=== PATIENT | female | born 1935 | race Caucasian/White ===

== ENCOUNTER 2023-07-26 16:35 | Inpatient (IN) | payer OTHER, MEDICAID ==
[~2023-07-26] VITALS: Ht 160 cm; Wt 51.7 kg
[2023-07-26] MEDS ORDERED: methylPREDNISolone SOD SUCC 125 MG/2ML VIAL IV ONE (17:00)
[2023-07-26] MEDS ORDERED: Magnesium 1GM/D5W 100ML PREMIX 200 ML IV ONE (17:00)
[2023-07-26] MEDS ORDERED: IPRATROPIUM NEB FS 0.5 MG/2.5 ML AMPUL.NEB NEB ONE (17:00)
[2023-07-26] MEDS ORDERED: ALBUTEROL FS 2.5 MG/3 ML VIAL.NEB CONTNEB ONE (17:00)
[2023-07-26] MEDS ORDERED: Magnesium 1GM/D5W 100ML PREMIX 100 ML IV ONE ×2 (17:04→18:10)
[2023-07-26] MEDS ORDERED: methylPREDNISolone SOD SUCC 125 MG/2ML VIAL ONE (17:04)
[2023-07-26] MEDS ORDERED: IPRATROPIUM NEB FS 0.5 MG/2.5 ML AMPUL.NEB ONE (17:06)
[2023-07-26] MEDS ORDERED: ALBUTEROL FS 2.5 MG/3 ML VIAL.NEB ONE (17:06)
[2023-07-26 17:18] VITALS: O2SAT 91
[2023-07-26 17:24] LABS: BASOPHILS % (AUTO) 0.1 % (0.0-2.0); EOSINOPHILS % (AUTO) 0.1 % (0.0-6.0); HEMATOCRIT 37 % (33-45); HEMOGLOBIN 12.1 g/dL (11.5-14.8); LYMPHOCYTES # (AUTO) 1.4 K/uL (0.8-4.8); LYMPHOCYTES % (AUTO) 6.3 % (20.0-44.0); MEAN CORPUSCULAR HEMOGLOBIN 28 PG (26.0-33.0); MEAN CORPUSCULAR HGB CONC 32 g/dl (31.0-36.0); MEAN CORPUSCULAR VOLUME 87 fL (82-100); MONOCYTES # (AUTO) 0.5 K/uL (0.1-1.30); MONOCYTES % (AUTO) 2.4 % (2.0-12.0); NEUTROPHILS # (AUTO) 20.5 K/uL (1.8-8.9); NEUTROPHILS % (AUTO) 91.1 % (43.0-81.0); PLATELET COUNT (AUTO) 120 K/uL (150-450); RED BLOOD CELL COUNT(AUTO) 4.31 MIL/uL (4.0-5.2); RED CELL DISTRIBUTION WIDTH 15.5 % (11.5-15.0); WHITE BLOOD COUNT (AUTO) 22.4 K/uL (4.3-11.0)
[2023-07-26 17:28] LABS: CALCIUM, SERUM 8.6 mg/dL (8.5-10.1); CARBON DIOXIDE 28 mmol/L (21-32); CHLORIDE 102 mmol/L (98-107); CREATININE 0.6 mg/dL (0.6-1.3); GLUCOSE 135 mg/dL (74-106); POTASSIUM 4.2 mmol/L (3.5-5.1); SODIUM SERUM 139 mmol/L (136-145); UREA NITROGEN, BLOOD 25 mg/dL (7-18)
[2023-07-26] MEDS ORDERED: PIPERACI/TAZO 3.375GM/D5W 50ML PB IV ONE ×2 (17:30→23:53)
[2023-07-26] MEDS ORDERED: ACETAMINOPHEN 650 MG/SUPP.RECT RC ONE ×2 (17:30)
[2023-07-26] MEDS ORDERED: PIPERACILLIN /TAZOBACTAM 3.375 G in IV D5W 50 ML IV ONE (17:30)
[2023-07-26] MEDS ORDERED: VANCOMYCIN 1 GM in IV D5W 250 ML IV ONE (17:30)
[2023-07-26] MEDS ORDERED: AZITHROMYCIN 500 MG in IV D5W 250 ML IV ONE (17:30)
[2023-07-26 17:38] VITALS: O2SAT 100
[2023-07-26] MEDS ORDERED: APIX5TAB PO (17:47)
[2023-07-26] MEDS ORDERED: POTA20TA83 PO (17:47)
[2023-07-26] MEDS ORDERED: ALBU6.7H9 IH (17:47)
[2023-07-26] MEDS ORDERED: NA P133E RC (17:47)
[2023-07-26] MEDS ORDERED: BISA10SU11 RC (17:47)
[2023-07-26] MEDS ORDERED: TRAZ-182 PO (17:47)
[2023-07-26] MEDS ORDERED: ACET-868 PO ×2 (17:47)
[2023-07-26] MEDS ORDERED: ASCO-352 PO (17:47)
[2023-07-26] MEDS ORDERED: FLUT1DIS5 IH (17:47)
[2023-07-26] MEDS ORDERED: CHOL200059 PO (17:47)
[2023-07-26] MEDS ORDERED: PRED5TAB PO (17:47)
[2023-07-26] MEDS ORDERED: SERT25TA PO (17:47)
[2023-07-26] MEDS ORDERED: PANT40TA49 PO (17:47)
[2023-07-26] MEDS ORDERED: SIMV-46 PO (17:47)
[2023-07-26] MEDS ORDERED: HYDR453. TP (17:47)
[2023-07-26] MEDS ORDERED: POLY15DR40 EACHEYE (17:47)
[2023-07-26] MEDS ORDERED: LEVA0.6320 IH (17:47)
[2023-07-26] MEDS ORDERED: MENT118G TP (17:47)
[2023-07-26] MEDS ORDERED: PRED10TA PO (17:47)
[2023-07-26] MEDS ORDERED: PRED20TA PO (17:47)
[2023-07-26] MEDS ORDERED: BUDE0.253 IH (17:47)
[2023-07-26] MEDS ORDERED: PETR113O TP (17:47)
[2023-07-26] MEDS ORDERED: ACLIDINIUM BROMIDE IH (17:47)
[2023-07-26] MEDS ORDERED: MELA5TAB PO (17:47)
[2023-07-26] MEDS ORDERED: FURO-145 PO (17:47)
[2023-07-26] MEDS ORDERED: ALEN70TA3 PO (17:47)
[2023-07-26] MEDS ORDERED: AMLO5TAB4 PO (17:47)
[2023-07-26] MEDS ORDERED: IPRA0.2S9 IH (17:47)
[2023-07-26] MEDS ORDERED: CALC-903 PO (17:47)
[2023-07-26] MEDS ORDERED: DOCU100C36 PO (17:47)
[2023-07-26] MEDS ORDERED: ZINC220C6 PO (17:47)
[2023-07-26] MEDS ORDERED: LEVO50TA PO (17:47)
[2023-07-26] MEDS ORDERED: MULT-213 PO (17:47)
[2023-07-26] MEDS ORDERED: ZINC57OI4 TP (17:47)
[2023-07-26] MEDS ORDERED: MAGN400O6 PO (17:47)
[2023-07-26 17:51] LABS: ALANINE AMINOTRANSFERASE 41 U/L (12-78); ALBUMIN 2.6 g/dL (3.4-5.0); ALKALINE PHOSPHATASE 54 U/L (46-116); ASPARTATE AMINOTRANSFERASE 22 U/L (15-37); BILIRUBIN,DIRECT 0.2 mg/dL (0.0-0.2); BILIRUBIN,TOTAL 0.6 mg/dL (0.2-1.0); TOTAL PROTEIN, SERUM 5.9 g/dL (6.4-8.2)
[2023-07-26] MEDS ORDERED: IV NS 0.9% 500 ML BAG IV ONE (18:00)
[2023-07-26] MEDS ORDERED: ACETAMINOPHEN 325 MG TABLET PO PRN ×3 (19:30)
[2023-07-26] MEDS ORDERED: BISACODYL SUPP (10 MG) 10 MG/SUPP.RECT SUPP.RECT RC PRN (19:30)
[2023-07-26] MEDS ORDERED: HYDROCORTISONE 1% CREAM 28.35 GM TUBE TP PRN (19:30)
[2023-07-26] MEDS ORDERED: MENTHOL TP PRN (19:30)
[2023-07-26] MEDS ORDERED: ONDANSETRON HCL/PF 4 MG/2 ML VIAL IVP PRN (19:30)
[2023-07-26] MEDS ORDERED: IPRATROPIUM NEB FS 0.5 MG/2.5 ML AMPUL.NEB IH PRN (19:30)
[2023-07-26] MEDS ORDERED: Z GUARD REMEDY 4 OZ OINT TP PRN (19:30)
[2023-07-26] MEDS ORDERED: MAGNESIUM HYDROXIDE 30 ML UDC PO PRN (19:30)
[2023-07-26] MEDS ORDERED: ZOLPIDEM TARTRATE 5 MG TABLET PO PRN (19:30)
[2023-07-26] MEDS ORDERED: MAG HYDROX/AL HYDROX/SIMETH 30 ML UDC PO PRN (19:30)
[2023-07-26 19:44] LABS: BAND % (MANUAL) 4 % (0.0-5.0); LYMPHOCYTES % (MANUAL) 10 % (16-48); MONOCYTES % (MANUAL) 5 % (0-11.0); NEUTROPHILS % (MANUAL) 81 (42-76); PLATELET ESTIMATE DECREASED
[2023-07-26] MEDS ORDERED: POLYVINYL ALCOHOL 15 ML BOTTLE EACHEYE PRN (20:00)
[2023-07-26] MEDS: SIMVASTATIN 20 MG TABLET PO SCH (22:53)
[2023-07-26] MEDS: TRAZODONE 50 MG TABLET PO SCH (22:53)
[2023-07-26] MEDS: methylPREDNISolone SOD SUCC 40 MG/ML VIAL IV SCH (23:42)
[2023-07-27] VITALS (16 sets, daily range): BP systolic 107–119; BP diastolic 62–73; TEMP 97.2–98.2; O2SAT 91–100
[2023-07-27] MEDS ORDERED: LEVALBUTEROL HCL IH SCH
[2023-07-27] MEDS: PIPERACILLIN /TAZOBACTAM 3.375 G in IV D5W 50 ML IV SCH ×3 (00:04→12:59)
[2023-07-27] MEDS ORDERED: ALBUTEROL FS 2.5 MG/3 ML VIAL.NEB NEB SCH (01:30)
[2023-07-27] MEDS: ALBUTEROL FS 2.5 MG/3 ML VIAL.NEB NEB SCH ×4 (02:41→19:32)
[2023-07-27] MEDS: IPRATROPIUM NEB FS 0.5 MG/2.5 ML AMPUL.NEB NEB SCH ×4 (02:41→19:32)
[2023-07-27] MEDS ORDERED: PIPERACI/TAZO 3.375GM/D5W 50ML PB IV ONE (05:13)
[2023-07-27] MEDS: methylPREDNISolone SOD SUCC 40 MG/ML VIAL IV SCH ×3 (05:17→21:21)
[2023-07-27 06:32] LABS: CARBON DIOXIDE 27 mmol/L (21-32); CHLORIDE 98 mmol/L (98-107); CREATININE 0.8 mg/dL (0.6-1.3); GLUCOSE 141 mg/dL (74-106); MAGNESIUM 3.1 mg/dL (1.8-2.4); PHOSPHORUS 5.4 mg/dL (2.5-4.9); POTASSIUM 4.1 mmol/L (3.5-5.1); SODIUM SERUM 134 mmol/L (136-145); UREA NITROGEN, BLOOD 27 mg/dL (7-18)
[2023-07-27] MEDS: BUDESONIDE RESPULE INH 0.25 MG/2 ML AMPUL.NEB IH SCH ×2 (07:57→16:13)
[2023-07-27 07:59] LABS: BASOPHILS % (AUTO) 0.2 % (0.0-2.0); HEMATOCRIT 36 % (33-45); HEMOGLOBIN 11.9 g/dL (11.5-14.8); LYMPHOCYTES # (AUTO) 1.1 K/uL (0.8-4.8); LYMPHOCYTES % (AUTO) 8.1 % (20.0-44.0); MEAN CORPUSCULAR HEMOGLOBIN 29 PG (26.0-33.0); MEAN CORPUSCULAR HGB CONC 33 g/dl (31.0-36.0); MEAN CORPUSCULAR VOLUME 87 fL (82-100); MONOCYTES # (AUTO) 0.2 K/uL (0.1-1.30); MONOCYTES % (AUTO) 1.5 % (2.0-12.0); NEUTROPHILS # (AUTO) 12.3 K/uL (1.8-8.9); NEUTROPHILS % (AUTO) 90.2 % (43.0-81.0); PLATELET COUNT (AUTO) 97 K/uL (150-450); RED BLOOD CELL COUNT(AUTO) 4.16 MIL/uL (4.0-5.2); RED CELL DISTRIBUTION WIDTH 15.1 % (11.5-15.0); WHITE BLOOD COUNT (AUTO) 13.6 K/uL (4.3-11.0)
[2023-07-27] MEDS ORDERED: PANTOPRAZOLE 40 MG VIAL IV SCH (09:00)
[2023-07-27] MEDS ORDERED: ACLIDINIUM BROMIDE IH SCH (09:00)
[2023-07-27 09:23] LABS: ABG BASE EXCESS 5.9 mmol/L; ABG OXYGEN SATURATION 89.4 % (92.0-98.5); ABG PH 7.496 (7.350-7.450); ABG PO2 54.3 mmHg (75.0-100.0); ABG TOTAL HEMOGLOBIN 12.8 G/dL (12.0-16.0); COHb 1.1 % (0.5-1.5); MetHb 0.2 % (0.0-1.5); O2Hb 88.2 % (94.0-97.0); SITE, ABG Right Radial; VENT MODE, BG 2 LPM NC
[2023-07-27] MEDS: ASCORBIC ACID 500 MG TABLET PO SCH (09:27)
[2023-07-27] MEDS: AMLODIPINE BESYLATE 5 MG TABLET PO SCH (09:27)
[2023-07-27] MEDS: LEVOTHYROXINE SODIUM 50 MCG TABLET PO SCH (09:28)
[2023-07-27] MEDS: DOCUSATE SODIUM 100 MG CAPSULE PO SCH ×2 (09:28→16:48)
[2023-07-27] MEDS: CHOLECALCIFEROL 1,000 UNIT TABLET (VIT D3) PO SCH (09:28)
[2023-07-27] MEDS: CALCIUM CARBONATE 500 MG TAB.CHEW PO SCH ×2 (09:28→16:48)
[2023-07-27] MEDS: MULTIVIT W/MINERALS 1 TAB TABLET PO SCH (09:28)
[2023-07-27] MEDS: APIXABAN 5 MG TABLET PO SCH ×2 (09:29→16:50)
[2023-07-27] MEDS: VANCOMYCIN 500 MG in IV D5W 100 ML IV SCH ×2 (09:30→21:21)
[2023-07-27] MEDS: FLUTICASONE/VILANTEROL 1 EACH BLST.W.DEV IH SCH (10:26)
[2023-07-27 14:33] LABS: ANISOCYTOSIS 1+; PLATELET ESTIMATE DECREASED
[2023-07-27 14:35] LABS: OVALOCYTES 1+
[2023-07-27] MEDS: CEFEPIME 2 GM in IV D5W 100 ML IV SCH (20:03)
[2023-07-27] MEDS: TRAZODONE 50 MG TABLET PO SCH (21:22)
[2023-07-27] MEDS: SIMVASTATIN 20 MG TABLET PO SCH (21:22)
[2023-07-27] MEDS ORDERED: MELATONIN 3 MG TABLET PO SCH (22:00)
[2023-07-28] VITALS (15 sets, daily range): BP systolic 100–117; BP diastolic 60–74; TEMP 97–98.2; O2SAT 91–98
[2023-07-28] MEDS: ALBUTEROL FS 2.5 MG/3 ML VIAL.NEB NEB SCH ×4 (01:49→20:08)
[2023-07-28] MEDS: IPRATROPIUM NEB FS 0.5 MG/2.5 ML AMPUL.NEB NEB SCH ×4 (01:49→20:08)
[2023-07-28] MEDS: methylPREDNISolone SOD SUCC 40 MG/ML VIAL IV SCH ×3 (04:24→21:05)
[2023-07-28] MEDS: BUDESONIDE RESPULE INH 0.25 MG/2 ML AMPUL.NEB IH SCH ×2 (07:50→15:45)
[2023-07-28] MEDS: ASCORBIC ACID 500 MG TABLET PO SCH (08:49)
[2023-07-28] MEDS: CEFEPIME 2 GM in IV D5W 100 ML IV SCH ×2 (08:49→20:15)
[2023-07-28] MEDS: DOCUSATE SODIUM 100 MG CAPSULE PO SCH ×2 (08:49→16:32)
[2023-07-28] MEDS: CHOLECALCIFEROL 1,000 UNIT TABLET (VIT D3) PO SCH (08:49)
[2023-07-28] MEDS: FLUTICASONE/VILANTEROL 1 EACH BLST.W.DEV IH SCH (08:49)
[2023-07-28] MEDS: CALCIUM CARBONATE 500 MG TAB.CHEW PO SCH ×2 (08:49→16:32)
[2023-07-28] MEDS: MULTIVIT W/MINERALS 1 TAB TABLET PO SCH (08:49)
[2023-07-28] MEDS: LEVOTHYROXINE SODIUM 50 MCG TABLET PO SCH (08:49)
[2023-07-28] MEDS: AMLODIPINE BESYLATE 5 MG TABLET PO SCH (08:50)
[2023-07-28] MEDS: PANTOPRAZOLE 40 MG TABLET.DR PO SCH (08:50)
[2023-07-28] MEDS: PROSOURCE / PROSTAT (PYXIS) 30 ML UDC PO SCH ×3 (08:51→16:35)
[2023-07-28] MEDS: ALENDRONATE 70 MG TABLET PO SCH (08:56)
[2023-07-28 08:59] LABS: CALCIUM, SERUM 8.4 mg/dL (8.5-10.1); CARBON DIOXIDE 29 mmol/L (21-32); CHLORIDE 98 mmol/L (98-107); CREATININE 0.8 mg/dL (0.6-1.3); GLUCOSE 118 mg/dL (74-106); POTASSIUM 3.5 mmol/L (3.5-5.1); SODIUM SERUM 135 mmol/L (136-145); UREA NITROGEN, BLOOD 28 mg/dL (7-18)
[2023-07-28 09:26] LABS: BASOPHILS % (AUTO) 0.1 % (0.0-2.0); HEMATOCRIT 35 % (33-45); HEMOGLOBIN 11.5 g/dL (11.5-14.8); LYMPHOCYTES % (AUTO) 7.4 % (20.0-44.0); MEAN CORPUSCULAR HEMOGLOBIN 28 PG (26.0-33.0); MEAN CORPUSCULAR HGB CONC 33 g/dl (31.0-36.0); MEAN CORPUSCULAR VOLUME 86 fL (82-100); MONOCYTES # (AUTO) 0.3 K/uL (0.1-1.30); MONOCYTES % (AUTO) 2.5 % (2.0-12.0); NEUTROPHILS # (AUTO) 12.2 K/uL (1.8-8.9); PLATELET COUNT (AUTO) 102 K/uL (150-450); RED BLOOD CELL COUNT(AUTO) 4.08 MIL/uL (4.0-5.2); RED CELL DISTRIBUTION WIDTH 14.9 % (11.5-15.0); WHITE BLOOD COUNT (AUTO) 13.6 K/uL (4.3-11.0)
[2023-07-28] MEDS: VANCOMYCIN 500 MG in IV D5W 100 ML IV SCH ×2 (09:38→21:05)
[2023-07-28] MEDS: APIXABAN 5 MG TABLET PO SCH ×2 (09:39→16:34)
[2023-07-28] MEDS ORDERED: ENSURE ENLIVE CHOC 237 ML CAN PO SCH (17:00)
[2023-07-28] MEDS: SIMVASTATIN 20 MG TABLET PO SCH (21:15)
[2023-07-28] MEDS: TRAZODONE 50 MG TABLET PO SCH (21:15)
[2023-07-29] VITALS (16 sets, daily range): BP systolic 103–127; BP diastolic 58–91; TEMP 97.4–98.6; O2SAT 85–99
[2023-07-29] MEDS: IPRATROPIUM NEB FS 0.5 MG/2.5 ML AMPUL.NEB NEB SCH ×4 (01:30→20:11)
[2023-07-29] MEDS: ALBUTEROL FS 2.5 MG/3 ML VIAL.NEB NEB SCH ×4 (01:30→20:11)
[2023-07-29] MEDS: methylPREDNISolone SOD SUCC 40 MG/ML VIAL IV SCH ×3 (05:54→21:22)
[2023-07-29 06:13] LABS: CALCIUM, SERUM 8.7 mg/dL (8.5-10.1); CARBON DIOXIDE 26 mmol/L (21-32); CHLORIDE 98 mmol/L (98-107); CREATININE 0.7 mg/dL (0.6-1.3); GLUCOSE 126 mg/dL (74-106); POTASSIUM 3.7 mmol/L (3.5-5.1); SODIUM SERUM 133 mmol/L (136-145); UREA NITROGEN, BLOOD 33 mg/dL (7-18)
[2023-07-29] MEDS: BUDESONIDE RESPULE INH 0.25 MG/2 ML AMPUL.NEB IH SCH ×2 (07:36→12:47)
[2023-07-29] MEDS: LEVOTHYROXINE SODIUM 50 MCG TABLET PO SCH (08:33)
[2023-07-29] MEDS: CALCIUM CARBONATE 500 MG TAB.CHEW PO SCH ×2 (08:34→18:44)
[2023-07-29] MEDS: MULTIVIT W/MINERALS 1 TAB TABLET PO SCH (08:34)
[2023-07-29] MEDS: CEFEPIME 2 GM in IV D5W 100 ML IV SCH ×2 (08:34→21:22)
[2023-07-29] MEDS: DOCUSATE SODIUM 100 MG CAPSULE PO SCH ×2 (08:34→18:43)
[2023-07-29] MEDS: FLUTICASONE/VILANTEROL 1 EACH BLST.W.DEV IH SCH (08:34)
[2023-07-29] MEDS: ASCORBIC ACID 500 MG TABLET PO SCH (08:34)
[2023-07-29] MEDS: PANTOPRAZOLE 40 MG TABLET.DR PO SCH (08:34)
[2023-07-29] MEDS: AMLODIPINE BESYLATE 5 MG TABLET PO SCH (08:37)
[2023-07-29] MEDS: APIXABAN 5 MG TABLET PO SCH ×2 (08:39→18:45)
[2023-07-29] MEDS: PROSOURCE / PROSTAT (PYXIS) 30 ML UDC PO SCH ×3 (08:40→18:44)
[2023-07-29] MEDS: CHOLECALCIFEROL 1,000 UNIT TABLET (VIT D3) PO SCH (10:00)
[2023-07-29] MEDS: VANCOMYCIN 500 MG in IV D5W 100 ML IV SCH (10:01)
[2023-07-29] MEDS: TRAZODONE 50 MG TABLET PO SCH (21:22)
[2023-07-29] MEDS: SIMVASTATIN 20 MG TABLET PO SCH (21:22)
[2023-07-30] VITALS (15 sets, daily range): BP systolic 98–142; BP diastolic 65–85; TEMP 97.7–98.6; O2SAT 92–100
[2023-07-30] MEDS: ALBUTEROL FS 2.5 MG/3 ML VIAL.NEB NEB SCH ×4 (02:20→19:56)
[2023-07-30] MEDS: IPRATROPIUM NEB FS 0.5 MG/2.5 ML AMPUL.NEB NEB SCH ×4 (02:20→19:56)
[2023-07-30] MEDS: methylPREDNISolone SOD SUCC 40 MG/ML VIAL IV SCH ×3 (05:43→21:02)
[2023-07-30] MEDS: FLUTICASONE/VILANTEROL 1 EACH BLST.W.DEV IH SCH (07:29)
[2023-07-30] MEDS: BUDESONIDE RESPULE INH 0.25 MG/2 ML AMPUL.NEB IH SCH ×2 (08:20→13:37)
[2023-07-30] MEDS: ASCORBIC ACID 500 MG TABLET PO SCH (08:32)
[2023-07-30] MEDS: LEVOTHYROXINE SODIUM 50 MCG TABLET PO SCH (08:32)
[2023-07-30] MEDS: PANTOPRAZOLE 40 MG TABLET.DR PO SCH (08:32)
[2023-07-30] MEDS: AMLODIPINE BESYLATE 5 MG TABLET PO SCH (08:32)
[2023-07-30] MEDS: MULTIVIT W/MINERALS 1 TAB TABLET PO SCH (08:32)
[2023-07-30] MEDS: DOCUSATE SODIUM 100 MG CAPSULE PO SCH (08:32)
[2023-07-30] MEDS: CALCIUM CARBONATE 500 MG TAB.CHEW PO SCH ×2 (08:33→17:58)
[2023-07-30] MEDS: CHOLECALCIFEROL 1,000 UNIT TABLET (VIT D3) PO SCH (08:33)
[2023-07-30] MEDS: APIXABAN 5 MG TABLET PO SCH ×2 (08:33→17:59)
[2023-07-30] MEDS: PROSOURCE / PROSTAT (PYXIS) 30 ML UDC PO SCH ×3 (08:34→17:58)
[2023-07-30] MEDS: CEFEPIME 2 GM in IV D5W 100 ML IV SCH ×2 (08:37→21:01)
[2023-07-30 11:21] LABS: BASOPHILS % (AUTO) 0.2 % (0.0-2.0); HEMATOCRIT 31 % (33-45); HEMOGLOBIN 9.9 g/dL (11.5-14.8); LYMPHOCYTES # (AUTO) 0.7 K/uL (0.8-4.8); LYMPHOCYTES % (AUTO) 4.2 % (20.0-44.0); MEAN CORPUSCULAR HEMOGLOBIN 29 PG (26.0-33.0); MEAN CORPUSCULAR HGB CONC 33 g/dl (31.0-36.0); MEAN CORPUSCULAR VOLUME 88 fL (82-100); MONOCYTES # (AUTO) 0.5 K/uL (0.1-1.30); MONOCYTES % (AUTO) 2.8 % (2.0-12.0); NEUTROPHILS # (AUTO) 15.2 K/uL (1.8-8.9); NEUTROPHILS % (AUTO) 92.8 % (43.0-81.0); PLATELET COUNT (AUTO) 78 K/uL (150-450); RED BLOOD CELL COUNT(AUTO) 3.49 MIL/uL (4.0-5.2); RED CELL DISTRIBUTION WIDTH 15.5 % (11.5-15.0); WHITE BLOOD COUNT (AUTO) 16.3 K/uL (4.3-11.0)
[2023-07-30 11:34] LABS: ALANINE AMINOTRANSFERASE 36 U/L (12-78); ALBUMIN 2.3 g/dL (3.4-5.0); ALKALINE PHOSPHATASE 41 U/L (46-116); ASPARTATE AMINOTRANSFERASE 16 U/L (15-37); BILIRUBIN,TOTAL 0.6 mg/dL (0.2-1.0); CALCIUM, SERUM 8.4 mg/dL (8.5-10.1); CARBON DIOXIDE 26 mmol/L (21-32); CHLORIDE 99 mmol/L (98-107); CREATININE 0.7 mg/dL (0.6-1.3); GLUCOSE 160 mg/dL (74-106); POTASSIUM 3.7 mmol/L (3.5-5.1); SODIUM SERUM 132 mmol/L (136-145); UREA NITROGEN, BLOOD 43 mg/dL (7-18)
[2023-07-30] MEDS: DOCUSATE SODIUM LIQ 100 MG/10 ML UDC PO SCH (13:06)
[2023-07-30 14:26] LABS: ANISOCYTOSIS 1+; PLATELET ESTIMATE DECREASED
[2023-07-30] MEDS ORDERED: ENSURE ENLIVE CHOC 237 ML CAN PO SCH (15:30)
[2023-07-30] MEDS: TRAZODONE 50 MG TABLET PO SCH (21:02)
[2023-07-30] MEDS: SIMVASTATIN 20 MG TABLET PO SCH (21:02)
[2023-07-31] VITALS (15 sets, daily range): BP systolic 107–124; BP diastolic 57–71; TEMP 97–98.9; O2SAT 92–99
[2023-07-31] MEDS: ALBUTEROL FS 2.5 MG/3 ML VIAL.NEB NEB SCH ×4 (02:18→20:27)
[2023-07-31] MEDS: IPRATROPIUM NEB FS 0.5 MG/2.5 ML AMPUL.NEB NEB SCH ×4 (02:18→20:27)
[2023-07-31] MEDS: methylPREDNISolone SOD SUCC 40 MG/ML VIAL IV SCH ×3 (05:14→21:19)
[2023-07-31] MEDS: LEVOTHYROXINE SODIUM 50 MCG TABLET PO SCH (07:15)
[2023-07-31] MEDS: BUDESONIDE RESPULE INH 0.25 MG/2 ML AMPUL.NEB IH SCH ×2 (07:59→15:44)
[2023-07-31] MEDS: CHOLECALCIFEROL 1,000 UNIT TABLET (VIT D3) PO SCH (08:35)
[2023-07-31] MEDS: MULTIVIT W/MINERALS 1 TAB TABLET PO SCH (08:36)
[2023-07-31] MEDS: PANTOPRAZOLE 40 MG TABLET.DR PO SCH (08:36)
[2023-07-31] MEDS: AMLODIPINE BESYLATE 5 MG TABLET PO SCH (08:37)
[2023-07-31] MEDS: CALCIUM CARBONATE 500 MG TAB.CHEW PO SCH ×2 (08:37→17:19)
[2023-07-31] MEDS: ASCORBIC ACID 500 MG TABLET PO SCH (08:37)
[2023-07-31] MEDS: DOCUSATE SODIUM LIQ 100 MG/10 ML UDC PO SCH (08:38)
[2023-07-31] MEDS: FLUTICASONE/VILANTEROL 1 EACH BLST.W.DEV IH SCH (08:39)
[2023-07-31] MEDS: CEFEPIME 2 GM in IV D5W 100 ML IV SCH ×2 (08:39→21:19)
[2023-07-31] MEDS: APIXABAN 5 MG TABLET PO SCH ×2 (08:41→17:20)
[2023-07-31] MEDS: PROSOURCE / PROSTAT (PYXIS) 30 ML UDC PO SCH ×3 (08:42→17:18)
[2023-07-31] MEDS: TRAZODONE 50 MG TABLET PO SCH (21:19)
[2023-07-31] MEDS: SIMVASTATIN 20 MG TABLET PO SCH (21:19)
[2023-08-01] VITALS (12 sets, daily range): BP systolic 97–122; BP diastolic 55–78; TEMP 97.7–98.6; O2SAT 91–99
[2023-08-01] MEDS: IPRATROPIUM NEB FS 0.5 MG/2.5 ML AMPUL.NEB NEB SCH ×4 (02:17→19:30)
[2023-08-01] MEDS: ALBUTEROL FS 2.5 MG/3 ML VIAL.NEB NEB SCH ×4 (02:18→19:30)
[2023-08-01] MEDS: methylPREDNISolone SOD SUCC 40 MG/ML VIAL IV SCH ×3 (05:38→20:26)
[2023-08-01] MEDS: LEVOTHYROXINE SODIUM 50 MCG TABLET PO SCH (07:19)
[2023-08-01] MEDS: BUDESONIDE RESPULE INH 0.25 MG/2 ML AMPUL.NEB IH SCH ×2 (07:30→15:00)
[2023-08-01] MEDS: FLUTICASONE/VILANTEROL 1 EACH BLST.W.DEV IH SCH (08:16)
[2023-08-01] MEDS: MULTIVIT W/MINERALS 1 TAB TABLET PO SCH (08:17)
[2023-08-01] MEDS: PANTOPRAZOLE 40 MG TABLET.DR PO SCH (08:17)
[2023-08-01] MEDS: CHOLECALCIFEROL 1,000 UNIT TABLET (VIT D3) PO SCH (08:17)
[2023-08-01] MEDS: CALCIUM CARBONATE 500 MG TAB.CHEW PO SCH ×2 (08:17→16:23)
[2023-08-01] MEDS: CEFEPIME 2 GM in IV D5W 100 ML IV SCH ×2 (08:17→20:25)
[2023-08-01] MEDS: ASCORBIC ACID 500 MG TABLET PO SCH (08:17)
[2023-08-01] MEDS: DOCUSATE SODIUM LIQ 100 MG/10 ML UDC PO SCH (08:17)
[2023-08-01] MEDS: AMLODIPINE BESYLATE 5 MG TABLET PO SCH (08:25)
[2023-08-01] MEDS: PROSOURCE / PROSTAT (PYXIS) 30 ML UDC PO SCH ×3 (08:27→16:19)
[2023-08-01] MEDS: APIXABAN 5 MG TABLET PO SCH ×2 (08:27→16:23)
[2023-08-01] MEDS: TRAZODONE 50 MG TABLET PO SCH (21:22)
[2023-08-01] MEDS: SIMVASTATIN 20 MG TABLET PO SCH (21:22)
[2023-08-02] VITALS (14 sets, daily range): BP systolic 105–124; BP diastolic 58–79; TEMP 96.8–98; O2SAT 91–99
[2023-08-02] MEDS: IPRATROPIUM NEB FS 0.5 MG/2.5 ML AMPUL.NEB NEB SCH ×4 (01:30→20:04)
[2023-08-02] MEDS: ALBUTEROL FS 2.5 MG/3 ML VIAL.NEB NEB SCH ×5 (01:30→23:41)
[2023-08-02] MEDS: methylPREDNISolone SOD SUCC 40 MG/ML VIAL IV SCH ×3 (05:06→20:18)
[2023-08-02 07:21] LABS: BASOPHILS % (AUTO) 0.2 % (0.0-2.0); HEMATOCRIT 30 % (33-45); HEMOGLOBIN 9.9 g/dL (11.5-14.8); LYMPHOCYTES # (AUTO) 0.7 K/uL (0.8-4.8); LYMPHOCYTES % (AUTO) 3.7 % (20.0-44.0); MEAN CORPUSCULAR HEMOGLOBIN 28 PG (26.0-33.0); MEAN CORPUSCULAR HGB CONC 33 g/dl (31.0-36.0); MEAN CORPUSCULAR VOLUME 86 fL (82-100); MONOCYTES # (AUTO) 0.6 K/uL (0.1-1.30); MONOCYTES % (AUTO) 3.4 % (2.0-12.0); NEUTROPHILS # (AUTO) 17.1 K/uL (1.8-8.9); NEUTROPHILS % (AUTO) 92.7 % (43.0-81.0); PLATELET COUNT (AUTO) 141 K/uL (150-450); RED CELL DISTRIBUTION WIDTH 14.9 % (11.5-15.0); WHITE BLOOD COUNT (AUTO) 18.5 K/uL (4.3-11.0)
[2023-08-02 07:30] LABS: CALCIUM, SERUM 8.3 mg/dL (8.5-10.1); CREATININE 0.7 mg/dL (0.6-1.3); POTASSIUM 3.9 mmol/L (3.5-5.1)
[2023-08-02] MEDS: DOCUSATE SODIUM LIQ 100 MG/10 ML UDC PO SCH (08:10)
[2023-08-02] MEDS: PANTOPRAZOLE 40 MG TABLET.DR PO SCH (08:10)
[2023-08-02] MEDS: SERTRALINE HCL 25 MG TABLET PO SCH (08:10)
[2023-08-02] MEDS: CHOLECALCIFEROL 1,000 UNIT TABLET (VIT D3) PO SCH (08:10)
[2023-08-02] MEDS: LEVOTHYROXINE SODIUM 50 MCG TABLET PO SCH (08:10)
[2023-08-02] MEDS: MULTIVIT W/MINERALS 1 TAB TABLET PO SCH (08:10)
[2023-08-02] MEDS: ASCORBIC ACID 500 MG TABLET PO SCH (08:11)
[2023-08-02] MEDS: CALCIUM CARBONATE 500 MG TAB.CHEW PO SCH ×2 (08:11→17:26)
[2023-08-02] MEDS: CEFEPIME 2 GM in IV D5W 100 ML IV SCH ×2 (08:13→20:17)
[2023-08-02] MEDS: PROSOURCE / PROSTAT (PYXIS) 30 ML UDC PO SCH ×3 (08:13→17:00)
[2023-08-02] MEDS: FLUTICASONE/VILANTEROL 1 EACH BLST.W.DEV IH SCH (08:14)
[2023-08-02] MEDS: APIXABAN 5 MG TABLET PO SCH ×2 (08:20→17:26)
[2023-08-02] MEDS: AMLODIPINE BESYLATE 5 MG TABLET PO SCH (08:30)
[2023-08-02] MEDS: BUDESONIDE RESPULE INH 0.25 MG/2 ML AMPUL.NEB IH SCH ×2 (09:09→13:29)
[2023-08-02] MEDS: SULFAMETH/TRIMETH 800/160 MG 1 UDTAB TABLET PO SCH (11:34)
[2023-08-02] MEDS: TRAZODONE 50 MG TABLET PO SCH (22:12)
[2023-08-02] MEDS: SIMVASTATIN 20 MG TABLET PO SCH (22:12)
[2023-08-02 22:57] LABS: ABG BASE EXCESS 1.3 mmol/L; ABG OXYGEN SATURATION 82.8 % (92.0-98.5); ABG PCO2 32.5 mmHg (35.0-45.0); ABG PH 7.492 (7.350-7.450); ABG PO2 46.3 mmHg (75.0-100.0); AaDO2 129.4 mmHg; COHb 0.3 % (0.5-1.5); MetHb 0.3 % (0.0-1.5); O2Hb 82.3 % (94.0-97.0); SITE, ABG Right Radial; VENT MODE, BG 30% VENTI
[2023-08-03] VITALS (18 sets, daily range): BP systolic 109–142; BP diastolic 41–89; TEMP 96.8–98.1; O2SAT 90–100
[2023-08-03] MEDS ORDERED: IPRATROPIUM NEB FS 0.5 MG/2.5 ML AMPUL.NEB NEB SCH
[2023-08-03] MEDS: IPRATROPIUM NEB FS 0.5 MG/2.5 ML AMPUL.NEB NEB SCH ×7 (01:44→23:55)
[2023-08-03] MEDS: methylPREDNISolone SOD SUCC 40 MG/ML VIAL IV SCH ×3 (04:11→20:17)
[2023-08-03] MEDS: ALBUTEROL FS 2.5 MG/3 ML VIAL.NEB NEB SCH ×6 (04:16→23:55)
[2023-08-03 06:38] LABS: BASOPHILS % (AUTO) 0.1 % (0.0-2.0); HEMATOCRIT 30 % (33-45); HEMOGLOBIN 9.6 g/dL (11.5-14.8); LYMPHOCYTES # (AUTO) 0.6 K/uL (0.8-4.8); LYMPHOCYTES % (AUTO) 4.1 % (20.0-44.0); MEAN CORPUSCULAR HEMOGLOBIN 29 PG (26.0-33.0); MEAN CORPUSCULAR HGB CONC 33 g/dl (31.0-36.0); MEAN CORPUSCULAR VOLUME 88 fL (82-100); MONOCYTES # (AUTO) 0.7 K/uL (0.1-1.30); MONOCYTES % (AUTO) 4.8 % (2.0-12.0); NEUTROPHILS # (AUTO) 13.5 K/uL (1.8-8.9); PLATELET COUNT (AUTO) 141 K/uL (150-450); RED BLOOD CELL COUNT(AUTO) 3.37 MIL/uL (4.0-5.2); RED CELL DISTRIBUTION WIDTH 15.4 % (11.5-15.0); WHITE BLOOD COUNT (AUTO) 14.8 K/uL (4.3-11.0)
[2023-08-03 06:46] LABS: CALCIUM, SERUM 7.8 mg/dL (8.5-10.1); CARBON DIOXIDE 24 mmol/L (21-32); CHLORIDE 102 mmol/L (98-107); CREATININE 0.5 mg/dL (0.6-1.3); GLUCOSE 109 mg/dL (74-106); MAGNESIUM 2.5 mg/dL (1.8-2.4); PHOSPHORUS 4.2 mg/dL (2.5-4.9); POTASSIUM 3.4 mmol/L (3.5-5.1); SODIUM SERUM 136 mmol/L (136-145); UREA NITROGEN, BLOOD 25 mg/dL (7-18)
[2023-08-03] MEDS: BUDESONIDE RESPULE INH 0.25 MG/2 ML AMPUL.NEB IH SCH ×2 (07:36→15:22)
[2023-08-03] MEDS: MULTIVIT W/MINERALS 1 TAB TABLET PO SCH (08:42)
[2023-08-03] MEDS: DOCUSATE SODIUM LIQ 100 MG/10 ML UDC PO SCH (08:42)
[2023-08-03] MEDS: CALCIUM CARBONATE 500 MG TAB.CHEW PO SCH ×2 (08:42→17:29)
[2023-08-03] MEDS: SERTRALINE HCL 25 MG TABLET PO SCH (08:42)
[2023-08-03] MEDS: CHOLECALCIFEROL 1,000 UNIT TABLET (VIT D3) PO SCH (08:43)
[2023-08-03] MEDS: PANTOPRAZOLE 40 MG TABLET.DR PO SCH (08:43)
[2023-08-03] MEDS: APIXABAN 5 MG TABLET PO SCH ×2 (08:44→17:29)
[2023-08-03] MEDS: LEVOTHYROXINE SODIUM 50 MCG TABLET PO SCH (08:44)
[2023-08-03] MEDS: SULFAMETH/TRIMETH 800/160 MG 1 UDTAB TABLET PO SCH (08:45)
[2023-08-03] MEDS: ASCORBIC ACID 500 MG TABLET PO SCH (08:45)
[2023-08-03] MEDS: PROSOURCE / PROSTAT (PYXIS) 30 ML UDC PO SCH ×3 (08:46→17:29)
[2023-08-03] MEDS: AMLODIPINE BESYLATE 5 MG TABLET PO SCH (08:48)
[2023-08-03] MEDS: CEFEPIME 2 GM in IV D5W 100 ML IV SCH ×2 (08:50→20:16)
[2023-08-03] MEDS: FLUTICASONE/VILANTEROL 1 EACH BLST.W.DEV IH SCH (08:50)
[2023-08-03] MEDS: DILTIAZEM HCL CD 240 MG PO SCH (11:12)
[2023-08-03] MEDS ORDERED: POTASSIUM CHLORIDE 20 MEQ POWDER PACKET PO ONE (12:00)
[2023-08-03] MEDS: TRAZODONE 50 MG TABLET PO SCH (21:13)
[2023-08-03] MEDS: SIMVASTATIN 20 MG TABLET PO SCH (21:13)
[2023-08-04] VITALS (17 sets, daily range): BP systolic 93–118; BP diastolic 44–59; TEMP 97.3–98.4; O2SAT 92–100
[2023-08-04] MEDS: IPRATROPIUM NEB FS 0.5 MG/2.5 ML AMPUL.NEB NEB SCH ×6 (03:22→23:47)
[2023-08-04] MEDS: ALBUTEROL FS 2.5 MG/3 ML VIAL.NEB NEB SCH ×6 (03:22→23:47)
[2023-08-04] MEDS: methylPREDNISolone SOD SUCC 40 MG/ML VIAL IV SCH ×3 (04:05→16:57)
[2023-08-04] MEDS: LEVOTHYROXINE SODIUM 50 MCG TABLET PO SCH (07:36)
[2023-08-04] MEDS: BUDESONIDE RESPULE INH 0.25 MG/2 ML AMPUL.NEB IH SCH ×2 (07:47→14:37)
[2023-08-04] MEDS: CALCIUM CARBONATE 500 MG TAB.CHEW PO SCH ×2 (08:26→16:56)
[2023-08-04] MEDS: PANTOPRAZOLE 40 MG TABLET.DR PO SCH (08:26)
[2023-08-04] MEDS: DOCUSATE SODIUM LIQ 100 MG/10 ML UDC PO SCH (08:26)
[2023-08-04] MEDS: MULTIVIT W/MINERALS 1 TAB TABLET PO SCH (08:26)
[2023-08-04] MEDS: SULFAMETH/TRIMETH 800/160 MG 1 UDTAB TABLET PO SCH (08:27)
[2023-08-04] MEDS: CHOLECALCIFEROL 1,000 UNIT TABLET (VIT D3) PO SCH (08:27)
[2023-08-04] MEDS: SERTRALINE HCL 25 MG TABLET PO SCH (08:28)
[2023-08-04] MEDS: AMLODIPINE BESYLATE 5 MG TABLET PO SCH (08:28)
[2023-08-04] MEDS: ASCORBIC ACID 500 MG TABLET PO SCH (08:28)
[2023-08-04] MEDS: DILTIAZEM HCL CD 240 MG PO SCH (08:29)
[2023-08-04] MEDS: ALENDRONATE 70 MG TABLET PO SCH (08:31)
[2023-08-04] MEDS: FLUTICASONE/VILANTEROL 1 EACH BLST.W.DEV IH SCH (08:31)
[2023-08-04] MEDS: CEFEPIME 2 GM in IV D5W 100 ML IV SCH ×2 (08:32→21:12)
[2023-08-04] MEDS: APIXABAN 5 MG TABLET PO SCH ×2 (08:37→16:57)
[2023-08-04] MEDS: PROSOURCE / PROSTAT (PYXIS) 30 ML UDC PO SCH ×3 (08:38→17:11)
[2023-08-04 09:41] LABS: BASOPHILS # (AUTO) 0.2 K/uL (0.0-0.2); BASOPHILS % (AUTO) 1.4 % (0.0-2.0); EOSINOPHILS % (AUTO) 0.1 % (0.0-6.0); HEMATOCRIT 27 % (33-45); HEMOGLOBIN 8.8 g/dL (11.5-14.8); LYMPHOCYTES # (AUTO) 0.4 K/uL (0.8-4.8); LYMPHOCYTES % (AUTO) 3.3 % (20.0-44.0); MEAN CORPUSCULAR HEMOGLOBIN 28 PG (26.0-33.0); MEAN CORPUSCULAR HGB CONC 33 g/dl (31.0-36.0); MEAN CORPUSCULAR VOLUME 87 fL (82-100); MONOCYTES # (AUTO) 0.4 K/uL (0.1-1.30); MONOCYTES % (AUTO) 2.9 % (2.0-12.0); NEUTROPHILS # (AUTO) 12.2 K/uL (1.8-8.9); NEUTROPHILS % (AUTO) 92.3 % (43.0-81.0); PLATELET COUNT (AUTO) 162 K/uL (150-450); RED BLOOD CELL COUNT(AUTO) 3.12 MIL/uL (4.0-5.2); RED CELL DISTRIBUTION WIDTH 16.1 % (11.5-15.0); WHITE BLOOD COUNT (AUTO) 13.2 K/uL (4.3-11.0)
[2023-08-04 09:50] LABS: CALCIUM, SERUM 8.6 mg/dL (8.5-10.1); CARBON DIOXIDE 26 mmol/L (21-32); CHLORIDE 103 mmol/L (98-107); CREATININE 0.8 mg/dL (0.6-1.3); GLUCOSE 157 mg/dL (74-106); POTASSIUM 4.3 mmol/L (3.5-5.1); SODIUM SERUM 136 mmol/L (136-145); UREA NITROGEN, BLOOD 29 mg/dL (7-18)
[2023-08-04 09:56] LABS: ALANINE AMINOTRANSFERASE 67 U/L (12-78); ALBUMIN 2.4 g/dL (3.4-5.0); ALKALINE PHOSPHATASE 51 U/L (46-116); ASPARTATE AMINOTRANSFERASE 15 U/L (15-37); BILIRUBIN,TOTAL 0.5 mg/dL (0.2-1.0); TOTAL PROTEIN, SERUM 4.9 g/dL (6.4-8.2)
[2023-08-04] MEDS: SIMVASTATIN 20 MG TABLET PO SCH (21:12)
[2023-08-04] MEDS: TRAZODONE 50 MG TABLET PO SCH (21:12)
[2023-08-05] VITALS (11 sets, daily range): BP systolic 107–127; BP diastolic 49–66; TEMP 97–98.1; O2SAT 92–100
[2023-08-05] MEDS: ALBUTEROL FS 2.5 MG/3 ML VIAL.NEB NEB SCH ×3 (03:57→11:36)
[2023-08-05] MEDS: IPRATROPIUM NEB FS 0.5 MG/2.5 ML AMPUL.NEB NEB SCH ×3 (03:57→11:36)
[2023-08-05 06:36] LABS: BASOPHILS % (AUTO) 0.2 % (0.0-2.0); HEMATOCRIT 26 % (33-45); HEMOGLOBIN 8.4 g/dL (11.5-14.8); LYMPHOCYTES # (AUTO) 0.5 K/uL (0.8-4.8); MEAN CORPUSCULAR HEMOGLOBIN 29 PG (26.0-33.0); MEAN CORPUSCULAR HGB CONC 33 g/dl (31.0-36.0); MEAN CORPUSCULAR VOLUME 88 fL (82-100); MONOCYTES # (AUTO) 0.6 K/uL (0.1-1.30); MONOCYTES % (AUTO) 3.9 % (2.0-12.0); NEUTROPHILS # (AUTO) 14.6 K/uL (1.8-8.9); NEUTROPHILS % (AUTO) 92.9 % (43.0-81.0); PLATELET COUNT (AUTO) 178 K/uL (150-450); RED BLOOD CELL COUNT(AUTO) 2.91 MIL/uL (4.0-5.2); RED CELL DISTRIBUTION WIDTH 16.3 % (11.5-15.0); WHITE BLOOD COUNT (AUTO) 15.7 K/uL (4.3-11.0)
[2023-08-05 06:57] LABS: ALBUMIN 2.3 g/dL (3.4-5.0); BILIRUBIN,TOTAL 0.5 mg/dL (0.2-1.0); CALCIUM, SERUM 8.4 mg/dL (8.5-10.1); CREATININE 0.7 mg/dL (0.6-1.3); POTASSIUM 3.9 mmol/L (3.5-5.1); TOTAL PROTEIN, SERUM 4.7 g/dL (6.4-8.2)
[2023-08-05] MEDS: LEVOTHYROXINE SODIUM 50 MCG TABLET PO SCH (07:47)
[2023-08-05] MEDS: BUDESONIDE RESPULE INH 0.25 MG/2 ML AMPUL.NEB IH SCH (07:54)
[2023-08-05] MEDS: CALCIUM CARBONATE 500 MG TAB.CHEW PO SCH (08:08)
[2023-08-05] MEDS: SERTRALINE HCL 25 MG TABLET PO SCH (08:08)
[2023-08-05] MEDS: FLUTICASONE/VILANTEROL 1 EACH BLST.W.DEV IH SCH (08:08)
[2023-08-05] MEDS: CEFEPIME 2 GM in IV D5W 100 ML IV SCH (08:08)
[2023-08-05] MEDS: DILTIAZEM HCL CD 240 MG PO SCH (08:09)
[2023-08-05] MEDS: DOCUSATE SODIUM LIQ 100 MG/10 ML UDC PO SCH (08:09)
[2023-08-05] MEDS: methylPREDNISolone SOD SUCC 40 MG/ML VIAL IV SCH (08:09)
[2023-08-05] MEDS: MULTIVIT W/MINERALS 1 TAB TABLET PO SCH (08:10)
[2023-08-05] MEDS: SULFAMETH/TRIMETH 800/160 MG 1 UDTAB TABLET PO SCH (08:10)
[2023-08-05] MEDS: ASCORBIC ACID 500 MG TABLET PO SCH (08:11)
[2023-08-05] MEDS: CHOLECALCIFEROL 1,000 UNIT TABLET (VIT D3) PO SCH (08:11)
[2023-08-05] MEDS: AMLODIPINE BESYLATE 5 MG TABLET PO SCH (08:11)
[2023-08-05] MEDS: PANTOPRAZOLE 40 MG TABLET.DR PO SCH (08:11)
[2023-08-05] MEDS: APIXABAN 5 MG TABLET PO SCH (08:12)
[2023-08-05] MEDS: PROSOURCE / PROSTAT (PYXIS) 30 ML UDC PO SCH ×2 (08:13→12:19)
[2023-08-05] MEDS ORDERED: DOCUSATE SODIUM LIQ 100 MG/10 ML UDC PO SCH (09:00)
[2023-08-05] MEDS ORDERED: LACTULOSE 10 G/15 ML UDC (PYXIS) PO ONE (09:00)
[2023-08-05] MEDS ORDERED: POLYETHYLENE GLYCOL 3350 17 GM POWD.PACK PO SCH (09:00)
[2023-08-05] MEDS ORDERED: POLY17PO29 PO (09:10)
[2023-08-05] MEDS ORDERED: SERT25TA5 PO (09:10)
[2023-08-05] MEDS ORDERED: DILT240C88 PO (09:10)
== END 2023-08-05 13:23 | DRG 871 ==
LOC: ER 16:42 → TELE1 20:57
PROVIDERS: ADMIT Nurse Practitioner Acute Care; ATTEND Internal Medicine
DX: A41.9 Sepsis, unspecified organism (principal); G93.41 Metabolic encephalopathy; J15.9 Unspecified bacterial pneumonia; J69.0 Pneumonitis due to inhalation of food and vomit; J96.21 Acute and chronic respiratory failure with hypoxia; E44.0 Moderate protein-calorie malnutrition; J44.1 Chronic obstructive pulmonary disease with (acute) exacerbation; D68.59 Other primary thrombophilia; J44.0 Chronic obstructive pulmonary disease with (acute) lower respiratory infection; J90 Pleural effusion, not elsewhere classified; J98.11 Atelectasis; F03.93 Unspecified dementia, unspecified severity, with mood disturbance; M48.54XA Collapsed vertebra, not elsewhere classified, thoracic region, initial encounter for fracture; F33.2 Major depressive disorder, recurrent severe without psychotic features; I50.32 Chronic diastolic (congestive) heart failure; Z66 Do not resuscitate; I11.0 Hypertensive heart disease with heart failure; Z20.822 Contact with and (suspected) exposure to COVID-19; Z79.899 Other long term (current) drug therapy; Z79.01 Long term (current) use of anticoagulants; Z79.51 Long term (current) use of inhaled steroids; K21.9 Gastro-esophageal reflux disease without esophagitis; Z86.718 Personal history of other venous thrombosis and embolism; Y95 Nosocomial condition; Z91.011 Allergy to milk products; Z88.8 Allergy status to other drugs, medicaments and biological substances; Z79.890 Hormone replacement therapy; Z74.09 Other reduced mobility; I48.0 Paroxysmal atrial fibrillation; M81.0 Age-related osteoporosis without current pathological fracture; N20.0 Calculus of kidney; E88.09 Other disorders of plasma-protein metabolism, not elsewhere classified; R79.89 Other specified abnormal findings of blood chemistry; L89.159 Pressure ulcer of sacral region, unspecified stage; I08.0 Rheumatic disorders of both mitral and aortic valves; K82.8 Other specified diseases of gallbladder; K56.41 Fecal impaction; I70.8 Atherosclerosis of other arteries; I70.0 Atherosclerosis of aorta; M43.17 Spondylolisthesis, lumbosacral region; N32.89 Other specified disorders of bladder; F09 Unspecified mental disorder due to known physiological condition; R33.9 Retention of urine, unspecified
CPT/HCPCS: 31720; 36415; 36600; 71045-TC; 71250-TC; 76700-TC; 80048-TC; 80053-TC; 80076-TC; 80202-TC; 82140-TC; 82803-TC; 83735-TC; 83880; 84100-TC; 84484-TC; 85025-TC; 87040-TC; 87081-TC; 92526; 92611-TC; 93307-TC; 93970-TC; 94799-TC; 97110-TC; 97530-TC; A4223; C9113; C9803; G0378; J0456; J0692; J2543; J2920; J2930; J3370; J3475; J7040; J7050; J7060